=== PATIENT | male | born 1990 | race Caucasian/White ===

== ENCOUNTER 2017-06-05 11:30 | Emergency (ER) | payer OTHER ==
[~2017-06-05] VITALS: Ht 182.9 cm; Wt 86.2 kg
[2017-06-05] MEDS ORDERED: EPIPEN 2-P0.3 MG/0.3 IM (13:29)
[2017-06-05 14:05] VITALS: BP 144/74
== END 2017-06-05 14:07 | disposition home or self-care (01) ==
LOC: ER 11:30
DX: T63.481A Toxic effect of venom of other arthropod, accidental (unintentional), initial encounter (principal); R06.00 Dyspnea, unspecified; Y92.89 Other specified places as the place of occurrence of the external cause